=== PATIENT | male | born 1975 | race Caucasian/White ===

== ENCOUNTER 2020-02-08 18:04 | Emergency (ER) | payer BC, OTHER, SELFPAY ==
--- NOTE | ~2020-02-08 | XR_ITS ---
EXAMINATION: XR chest 2V DATE: 02/08/2020 18:43 INDICATION: Left arm numbness. TECHNIQUE: Frontal and lateral views of the chest were obtained. COMPARISON: None. FINDINGS: The chest demonstrates clear lungs without pneumonia, pleural effusion, or pneumothorax. Th e heart size is normal. IMPRESSION: 1. No acute cardiopulmonary disease. Reviewed, dictated and finalized at location A.
--- NOTE | 2020-02-08 18:11 | ECG_ITS ---
Measurements Intervals [place] Rate: 101 P: 54 [place]: 124 QRS: -13 QRSD: 82 T: 52 QT: 328 QTc: 427 Interpretive Statements SINUS TACHYCARDIA DELAYED PRECORDIAL R/S TRANSITION MINIMAL Q WAVES- HIGH LATERAL LEADS BORDERLINE ECG Electronically Signed On 02-09-2020 7:41:30 CDT by Kingston Carrington D.O.
[2020-02-08 18:12] VITALS: BP 152/88; PULSE 101; RESP 20; TEMP 37.1; O2SAT 99
[2020-02-08 18:21] LABS: Basophils Absolute Auto 0.1 K/mm3 (0.0-0.1); Basophils Percent Auto 0.6 % (0.2-1.2); Eosinophils Absolute Auto 0.6 K/mm3 (0-0.3); Eosinophils Percent Auto 4.8 % (0-4.4); Hematocrit 47.5 % (42.0-52.0); Hemoglobin 16.6 g/dL (14.0-18.0); Immature Granulocyte Absolute 0.03 K/mm3 (0.00-0.031); Immature Granulocyte Percent A 0.3 % (0-0.5); Lymphocytes Absolute Auto 3.34 K/mm3 (0.9-3.2); Lymphocytes Percent Auto 28.5 % (18.3-44.2); Mean Corpuscular HGB Conc 34.9 g/dl (32-36); Mean Corpuscular Hemoglobin 30.3 pg (26-34); Mean Corpuscular Volume 86.7 fl (80-100); Mean Platelet Volume 9.7 fl (7.4-10.4); Monocytes Absolute Auto 0.9 K/mm3 (0.1-0.6); Monocytes Percent Auto 7.4 % (2.6-8.5); Neutrophils Absolute Auto 6.8 K/mm3 (1.3-6.7); Neutrophils Percent Auto 58.4 % (45.5-73.1); Platelet Count Result 301 k/mm3 (150-375); Red Blood Count 5.48 M/mm3 (4.6-6.20); Red Cell Distribution Width 12.5 % (11.5-14.5); White Blood Count 11.7 K/mm3 (4.5-10.0)
[2020-02-08 18:30] LABS: INR 0.9; Prothrombin Time 11.7 Seconds (11.1-14.7)
[2020-02-08 18:31] LABS: Partial Thromboplastin Time 27.5 SECONDS (22.3-36.8)
[2020-02-08 18:32] LABS: Blood Urea Nitrogen 9 mg/dL (9-20); Carbon Dioxide 25 mmol/L (22-30); Chloride 105 mmol/L (98-107); Estimated CRCL calculation 101 ml/min; Estimated Glomerular Filt Rate > 60; Glucose 139 mg/dL (75-110); Potassium 3.7 mmol/L (3.4-5.0); Sodium 138 mmol/L (137-145)
[2020-02-08 19:02] LABS: Troponin I < 0.012 ng/mL (0.000-0.034)
[2020-02-08 20:28] VITALS: BP 141/75; PULSE 74; RESP 15; TEMP 36.7; O2SAT 97
--- NOTE | 2020-02-08 21:30 | PC.NURSE ---
pt pacing triage waiting rm. updated him on wait.
[2020-02-08 22:00] VITALS: BP 151/95; PULSE 71; RESP 18; O2SAT 99
[2020-02-08 22:03] VITALS: BP 151/95; PULSE 108; O2SAT 89
[2020-02-08 22:15] LABS: Troponin I < 0.012 ng/mL (0.000-0.034)
--- NOTE | 2020-02-08 22:22 | ED.GENADULT ---
HPI - General Adult General Chief complaint: Neuro Symptoms/Deficit Stated complaint: elevated heart rate/numbness left arm Time Seen by Provider: 02/08/20 22:22 History of Present Illness HPI narrative: Intermittent numbness in the left hand and arm since awaking this morning. Worst in the fourth and fifth fingers. Also noted elevated heart rate today after working out. He does admit to drinking heavily last night and thinks that he may have slept in a strange position. No chest pain, palpitations. Related Data Home Medications Medication Instructions Recorded Confirmed No Home Medications 02/08/20 02/08/20 Allergies Allergy/AdvReac Type Severity Reaction Status Date / Time No Known Allergies Allergy Verified 02/08/20 18:14 Review of Systems Review of Systems: All systems reviewed & are unremarkable except as noted in HPI and below [facility] Social History Social History (Updated 02/11/20 @ 08:59 by Ray Sequeira MD) Smoking status: Never smoker Exam Const: General: healthy appearing, no acute distress and alert Orientation/consciousness: patient oriented x3 HENMT: Head: normal to inspection Neck: Neck: normal visual inspection and no lymphadenopathy Chest: Chest palpation & inspection: no tenderness Resp: Effort & Inspection: normal respiratory effort Auscultation: clear to auscultation bilaterally, no rales, no rhonchi and no wheezes Cardio: Jugular venous distension: no JVD Rate: regular rate Rhythm: regular rhythm Heart sounds: no murmurs GI: Inspection: non-distended GI Palp: Yes Soft to palpation and No Tenderness to palpation present (GI) Skin: General skin exam: normal color Neuro: General: patient oriented x3, moves all extremities and CN's II-XI intact bilaterally Speech: normal speech Gait exam (Neuro): Normal gait present Other: sensation intact Extrem: General: no edema Psych: Appearance: well kempt Affect: normal affect Course Vital Signs Vital signs: Vital Signs Temperature 37.1 C 02/08/20 18:12 Pulse Rate 101 H 02/08/20 18:12 Respiratory Rate 20 02/08/20 18:12 Blood Pressure 152/88 H 02/08/20 18:12 Pulse Oximetry 99 02/08/20 18:12 Temperature 36.7 C 02/08/20 20:28 Pulse Rate 64 02/08/20 22:58 Respiratory Rate 18 02/08/20 22:58 Blood Pressure 140/85 02/08/20 22:58 Pulse Oximetry 97 02/08/20 22:58 Medical Decision Making MDM Narrative Medical decision making narrative: He has mild paresthesi of the left hand and arm. Likely related to sleeping position. No motor impairment. EKG normal. Troponin negative x2. Medical Records Medical records reviewed: Yes I reviewed the patient's medical records. Vital Signs Vital Signs: Vital Signs Temperature 37.1 C 02/08/20 18:12 Pulse Rate 101 H 02/08/20 18:12 Respiratory Rate 20 02/08/20 18:12 Blood Pressure 152/88 H 02/08/20 18:12 Pulse Oximetry 99 02/08/20 18:12 Temperature 36.7 C 02/08/20 20:28 Pulse Rate 64 02/08/20 22:58 Respiratory Rate 18 02/08/20 22:58 Blood Pressure 140/85 02/08/20 22:58 Pulse Oximetry 97 02/08/20 22:58 Lab Data Lab results reviewed: Yes I reviewed the patient's lab results. Result diagrams: 02/08/20 18:13 02/08/20 18:13 Labs: Lab Results 02/08/20 02/08/20 02/08/20 Range/Units 18:13 18:13 18:13 WBC 11.7 H (4.5-10.0) K/mm3 RBC 5.48 (4.6-6.20) M/mm3 Hgb 16.6 (14.0-18.0) g/dL Hct 47.5 (42.0-52.0) % MCV 86.7 (80-100) fl MCH 30.3 (26-34) pg MCHC 34.9 (32-36) g/dl RDW 12.5 (11.5-14.5) % Plt Count 301 (150-375) k/mm3 MPV 9.7 (7.4-10.4) fl Immature Gran % (Auto) 0.3 (0-0.5) % Neut % (Auto) 58.4 (45.5-73.1) % Lymph % (Auto) 28.5 (18.3-44.2) % [place] % (Auto) 7.4 (2.6-8.5) % Eos % (Auto) 4.8 H (0-4.4) % Baso % (Auto) 0.6 (0.2-1.2) % Lymph # (Auto) 3.34 H (0.9-3.2) K/mm3 [place] # (Auto) 0.9 H (0.1-0.6)
[2020-02-08] MEDS: ASPIRIN 81 MG CHEWABLE TABLET 324 MG PO (22:56)
[2020-02-08 22:58] VITALS: BP 140/85; PULSE 64; RESP 18; O2SAT 97
== END 2020-02-08 23:00 | disposition home or self-care (01) ==
LOC: ANHED 22:35
PROVIDERS: Emergency Medicine; Emergency Provider Emergency Medicine; PCP Internal Medicine
DX: R20.2 Paresthesia of skin (principal)
CPT/HCPCS: 36415; 71046; 80048; 84484; 85025; 85610; 85730; 93005; 99284; A9270

== ENCOUNTER 2021-04-12 16:28 | Emergency (ER) | payer BC, OTHER, SELFPAY ==
[2021-04-12 16:41] VITALS: BP 128/78; PULSE 68; RESP 16; TEMP 36.8; O2SAT 99
--- NOTE | 2021-04-12 17:43 | ED_ITS ---
HPI - Extremity Injury (Upper) General Chief Complaint: Extremity Injury, Upper Stated Complaint: rt hand pain Source: patient and RN notes reviewed Limitations: no limitations History of Present Illness HPI narrative: The patient, right-handed and active, presents with right hand pain. Patient states he does [place]-competition/training. He has 1/2- week history of right distal radius and thumb pain that is mild, worse with motion, better at rest, located the CMC area. No bleeding, deformity, direct injury; discussed plan to immobilize and provide anti-inflammatories. Patient requests refill of his thyroid medicine Related Data Allergies Allergy/AdvReac Type Severity Reaction Status Date / Time No Known Allergies Allergy Verified 04/12/21 17:05 Review of Systems Review of Systems: General/Constitutional: No weight loss,fever Eyes: N0: Redness,discharge Ears/Nose/Throat: No: Epistaxis,ear discharge Respiratory: Denies: Hemoptysis Gastrointestinal: No Vomiting, Bleeding-rectal Skin: No Lumps, eruption Neurologic: No Focal Weakness,Sz Hematologic: Denies: Petechiae/Purpura Psychiatric: No: Suicida ideationl All Other Systems: Reviewed and Negative [facility] Social History Social History (Updated 02/11/20 @ 08:59 by Ray Sequeira MD) Smoking status: Never smoker Comments At time of signature, agree with nursing past medical, surgical, social and family history. There is no relevant family history pertinent to the presenting complaint Exam Narrative: General Appearance: Well appearing, Conjunctiva clear Mouth/Throat: Normal appearing, Normal lips, Supple Respiratory: Airway patent, No respiratory distress MS-wrist: Normal strength (mostly intact, limited flexion/extension by pain), Tenderness (central pulses, with mild decreased ROM), Scant swelling (distal to radial styloid), Other (no anterior drawer, no scaphoid tenderness, ulnar collateral laxity,+/-Elin) Skin: Warm, Dry, Normal color Neurological: A&O x3, Normal affect Course Vital Signs Vital signs: Vital Signs Temperature 98.2 F 04/12/21 16:41 Pulse Rate 68 04/12/21 16:41 Respiratory Rate 16 04/12/21 16:41 Blood Pressure 128/78 04/12/21 16:41 Pulse Oximetry 99 04/12/21 16:41 Temperature 98.2 F 04/12/21 16:41 Pulse Rate 68 04/12/21 16:41 Respiratory Rate 16 04/12/21 16:41 Blood Pressure 128/78 04/12/21 16:41 Pulse Oximetry 99 04/12/21 16:41 Discharge Plan Discharge Clinical Impression: Extensor tendinitis of hand Patient Disposition: Home, Self-Care Condition: Stable Additional Instructions: Get and wear reinforced splint See PMD or hand doctor in follow-up Prescriptions: New levothyroxine [Synthroid] 112 mcg tablet 112 mcg PO DAILY Qty: 30 RF: 2 prednisone 20 mg tablet 60 mg PO DAILY Qty: 15 RF: 0 tramadol 50 mg tablet 50 - 75 mg PO Q6H PRN (Reason: pain) Qty: 30 RF: 0 Follow-up/Referrals: Kevin,Tony Jacobs MD [Primary Care Provider] -
== END 2021-04-12 17:58 | disposition home or self-care (01) ==
PROVIDERS: Emergency Provider Emergency Medicine; PCP Internal Medicine
DX: M77.8 Other enthesopathies, not elsewhere classified (principal)
CPT/HCPCS: 99213; G0463